=== PATIENT | female | born 1985 | race African-American/Black ===

== ENCOUNTER 2018-01-21 21:39 | Emergency (ER) | payer SELFPAY ==
--- NOTE | 2018-01-21 22:16 | RAD ---
RIGHT SHOULDER THREE VIEWS: 01/21/18 HISTORY: Shoulder pain. There is no signs of fracture or dislocation. There is slight irregularity to the greater tuberosity of the humerus on the externally rotated view. This is not substantiated on the other views and may j ust be projectional. I think it unlikely to represent any type of avulsion injury. IMPRESSION: No definite acute findings. POS: [facility]
[2018-01-21] MEDS ORDERED: Naproxen 500 MG TAB ONE (23:02)
== END 2018-01-21 23:09 | disposition home or self-care (01) ==
LOC: ERS 21:39
DX: S43.401A Unspecified sprain of right shoulder joint, initial encounter (principal); F17.210 Nicotine dependence, cigarettes, uncomplicated